=== PATIENT | female | born 1995 | race Two or more races ===

== ENCOUNTER 2017-07-04 21:42 | Emergency (ER) | payer SELFPAY ==
[~2017-07-04] VITALS: Ht 157.5 cm; Wt 99.8 kg
[2017-07-04 23:07] LABS: Basophils # (auto) 0.3 uL; Basophils % (auto) 1.9 % (0.0-2.0); Eosinophils # (auto) 0 uL; Hematocrit 41.7 % (36.0-46.0); Hemoglobin 14.2 g/dL (12.2-16.2); Lymphocytes # (auto) 0.8 uL; Lymphocytes % (auto) 4.7 % (10.0-50.0); Mean Corpuscular Hemoglobin 28.9 pg (28.0-32.0); Monocytes # (auto) 0.5 uL; Monocytes % (auto) 2.7 % (0.0-12.0); Neutrophils # (auto) 15.7 uL; Neutrophils % (auto) 90.7 % (37.0-80.0); Platelet Count (auto) 401 10^3/uL (140-450); Red Cell Distribution Width 13.5 % (11.8-14.3); White Blood Cell 17.3 10^3/uL (4.4-10.8)
[2017-07-04 23:11] LABS: Urine Bacteria NONE SEEN /hpf (None Seen); Urine Blood TRACE /uL (Negative); Urine Mucus FEW (None Seen); Urine Specific Gravity 1.028 (1.001-1.035); Urine WBC 7 /hpf (0 - 5)
[2017-07-04 23:21] LABS: BUN/Creatinine Ratio 31.7; Magnesium 2.2 mg/dL (1.6-2.6)
[2017-07-04 23:24] LABS: Bilirubin, Total 0.9 mg/dL (0.2-1.0); Total Protein 8.5 g/dL (6.4-8.2)
[2017-07-05 07:37] VITALS: BP 136/80
== END 2017-07-05 07:53 | disposition home or self-care (01) ==
LOC: ER 21:42
DX: R10.84 Generalized abdominal pain (principal); Z88.1 Allergy status to other antibiotic agents
CPT/HCPCS: 36415; 74176; 80053; 81001; 81025; 83690; 83735; 85025

== ENCOUNTER 2018-03-16 05:29 | Emergency (ER) | payer MEDICAID ==
[~2018-03-16] VITALS: Ht 157.5 cm; Wt 106.6 kg
[2018-03-16] MEDS ORDERED: IPRATROPIUM BROM 0.5 MG/2.5ML INH SOL NEB ONE ×2 (05:45→07:30)
[2018-03-16] MEDS ORDERED: ALBUTEROL SULF 2.5 MG/0.5ML(0.5%) NEB SOLN NEB ONE ×2 (05:45→07:30)
[2018-03-16] MEDS ORDERED: SODIUM CHLORIDE 0.9% 1,000 ML IV ONE (07:17)
[2018-03-16] MEDS ORDERED: AZITHROMYCIN 500MG/ 250ML 250 ML IV ONE (07:30)
[2018-03-16 07:44] LABS: Basophils # (auto) 0.1 uL; Basophils % (auto) 0.5 % (0.0-2.0); Eosinophils # (auto) 0.1 uL; Eosinophils % (auto) 1.3 % (0.0-7.0); Hemoglobin 12.8 g/dL (12.2-16.2); Lymphocytes % (auto) 18.3 % (10.0-50.0); Mean Corpuscular Hemoglobin 28.7 pg (28.0-32.0); Mean Corpuscular Hgb Conc. 33.6 g/dL (32.0-36.0); Mean Corpuscular Volume 85.3 fL (80.0-100.0); Monocytes # (auto) 0.8 uL; Monocytes % (auto) 7.6 % (0.0-12.0); Neutrophils # (auto) 7.8 uL; Neutrophils % (auto) 72.3 % (37.0-80.0); Platelet Count (auto) 371 10^3/uL (140-450); Red Blood Cells 4.45 10^6/uL (4.0-5.20); White Blood Cell 10.8 10^3/uL (4.4-10.8)
[2018-03-16 08:03] LABS: BUN/Creatinine Ratio 30.8; Calcium 8.1 mg/dL (8.5-10.1); Magnesium 2.4 mg/dL (1.6-2.6)
[2018-03-16 11:32] LABS: Urine Bacteria FEW /hpf (None Seen); Urine Blood Negative /uL (Negative); Urine Specific Gravity 1.008 (1.001-1.035); Urine WBC 2 /hpf (0 - 5)
[2018-03-16 13:02] VITALS: BP 133/87
== END 2018-03-16 13:30 | disposition home or self-care (01) ==
LOC: ER 05:29
DX: J45.901 Unspecified asthma with (acute) exacerbation (principal); E66.9 Obesity, unspecified; Z68.41 Body mass index [BMI] 40.0-44.9, adult
CPT/HCPCS: 36415; 71046; 80048; 81001; 83735; 84443; 85025; 87804; 94640; 94761; 96365; 96366; 99284; J0456; J7611; J7644

== ENCOUNTER 2019-04-03 22:04 | Emergency (ER) | payer MEDICAID ==
[~2019-04-03] VITALS: Ht 215.9 cm; Wt 83.9 kg
[~2019-04-03 22:04] MED LIST: ALB5IS NEB; ALBU2TAB4 PO; FLUT100I IN; LEVO-28 PO; OME20T PO; PRE5T GT
[2019-04-03 23:53] VITALS: BP 134/92
[2019-04-04] MEDS ORDERED: IPRATROPIUM BROM 0.5 MG/2.5ML INH SOL NEB ONE
[2019-04-04] MEDS ORDERED: ALBUTEROL SULF 2.5 MG/0.5ML(0.5%) NEB SOLN NEB ONE
[2019-04-04] MEDS ORDERED: cefTRIAXone 1GM/50ML D5W 50 ML IV ONE
[2019-04-04] MEDS ORDERED: methylPREDNISolone SOD SUCC 125 MG/2 ML VL IV ONE
[2019-04-04 00:32] LABS: Basophils # (auto) 0 uL; Basophils % (auto) 0.1 % (0.0-2.0); Eosinophils # (auto) 0 uL; Eosinophils % (auto) 0.2 % (0.0-7.0); Hematocrit 43.8 % (36.0-46.0); Hemoglobin 15.1 g/dL (12.2-16.2); Lymphocytes # (auto) 2.2 uL; Lymphocytes % (auto) 16.4 % (10.0-50.0); Mean Corpuscular Hemoglobin 30.6 pg (28.0-32.0); Mean Corpuscular Hgb Conc. 34.6 g/dL (32.0-36.0); Mean Corpuscular Volume 88.4 fL (80.0-100.0); Monocytes # (auto) 0.9 uL; Monocytes % (auto) 6.4 % (0.0-12.0); Neutrophils # (auto) 10.4 uL; Neutrophils % (auto) 76.9 % (37.0-80.0); Platelet Count (auto) 380 10^3/uL (140-450); Red Blood Cells 4.95 10^6/uL (4.0-5.20); Red Cell Distribution Width 13.1 % (11.8-14.3); White Blood Cell 13.5 10^3/uL (4.4-10.8)
[2019-04-04 00:58] LABS: INR 1.13 (0.9-1.15); Partial Thromboplastin Time 32.3 sec (23.64-32.05)
[2019-04-04 00:59] LABS: Alanine Aminotransferase 24 U/L (13-56); Albumin 3.8 g/dL (3.4-5.0); Anion Gap 7 (5-15); Aspartate Aminotransferase 12 U/L (15-37); BUN/Creatinine Ratio 26.7; Blood Urea Nitrogen 16 mg/dL (7-18); Calcium 8.9 mg/dL (8.5-10.1); Carbon Dioxide 25 mmol/L (21-32); Chloride 105 mmol/L (98-107); GFR African American 162 mL/min; GFR Non-African American 134 mL/min; Glucose 92 mg/dL (74-106); Magnesium 2.3 mg/dL (1.6-2.6); Potassium 3.9 mmol/L (3.5-5.1); Sodium 137 mmol/L (136-145)
[2019-04-04 01:04] LABS: Alkaline Phosphatase 97 U/L (45-117); Bilirubin, Total 0.7 mg/dL (0.2-1.0); Total Protein 8.2 g/dL (6.4-8.2)
== END 2019-04-04 01:35 | disposition home or self-care (01) ==
LOC: EDBD 22:04 → ER 22:11
DX: M31.30 Wegener's granulomatosis without renal involvement (principal); J45.909 Unspecified asthma, uncomplicated
CPT/HCPCS: 36415; 80053; 83735; 83880; 84484; 85025; 85379; 85610; 85730; 94640; 99284; J0696; J2930; J7611; J7644